=== PATIENT | male | born 1985 | race African-American/Black ===

== ENCOUNTER 2016-11-14 17:25 | Emergency (ER) | payer OTHER ==
[2016-11-14] MEDS ORDERED: KETOROLAC 30 MG/ML VIAL ONE (19:53)
[2016-11-14] MEDS ORDERED: ENOXAPARIN 60 MG/0.6 ML SYR SUBQ ONE (20:29)
== END 2016-11-14 21:30 | disposition home or self-care (01) ==
LOC: ER 17:25
DX: R07.2 Precordial pain (principal); I26.99 Other pulmonary embolism without acute cor pulmonale; Z79.01 Long term (current) use of anticoagulants; Z87.891 Personal history of nicotine dependence
CPT/HCPCS: 36415; 71010; 80053; 82553; 82947; 84484; 85025; 85610; 93005; 96372; 96374